=== PATIENT | female | born 1990 | race Caucasian/White ===

== ENCOUNTER 2016-08-17 08:08 | Inpatient (IN) | payer OTHER ==
[~2016-08-17] VITALS: Ht 177.8 cm; Wt 110.0 kg
[2016-08-17] VITALS (26 sets, daily range): BP systolic 113–147; BP diastolic 62–90
[2016-08-17] MEDS ORDERED: PRENTAB31 PO (08:43)
[2016-08-17] MEDS ORDERED: RANI15TA PO (08:43)
[2016-08-17] MEDS ORDERED: LACTATED RINGER'S 1000 ML IV STA (08:52)
[2016-08-17] MEDS ORDERED: LR 1,000 ML IV SCH ×2 (08:52)
[2016-08-17] MEDS ORDERED: OXYTOCIN DRIP 30 UNITS in APPROPRIATE DILUENT 1 EA IV SCH (09:00)
[2016-08-17 09:26] LABS: MEAN CORPUSCULAR HEMOGLOBIN 29.9 pg (27.0-33.0); MEAN CORPUSCULAR HGB CONC 33.4 g/dl (32.0-36.5); MEAN CORPUSCULAR VOLUME 89.4 fl (80.0-96.0); RED CELL DISTRIBUTION WIDTH 13.9 % (11.5-14.5)
[2016-08-17] MEDS ORDERED: FENTANYL 2MCG/ML ROPIVACAINE 0.2% NACL 250 ML CADD As Ordered ONE (13:20)
[2016-08-17] MEDS ORDERED: REFRIGERATOR IV KEYS XX PRN (14:45)
[2016-08-17] MEDS ORDERED: NALOXONE INJ 0.4 MG/1 ML VIAL (J2310) IV PRN (14:45)
[2016-08-17] MEDS ORDERED: ONDANSETRON 4MG/2ML VIAL (J2405) IV PRN ×2 (14:45→18:00)
[2016-08-17] MEDS ORDERED: FENTANYL/ROPIVACAINE/NACL CADD 250 ML EPIDURAL SCH (14:45)
[2016-08-17] MEDS ORDERED: EPIDURAL COMMENT XX SCH (14:45)
[2016-08-17] MEDS ORDERED: EPIDURAL/PCA KEYS XX PRN (14:45)
[2016-08-17] MEDS ORDERED: ePHEDrine SULFATE 25 MG/5 ML(5MG/ML) SYRINGE IV PRN (14:45)
[2016-08-17] MEDS ORDERED: diphenhydrAMINE INJ 50MG/ML VIAL (J1200) IV PRN (14:45)
[2016-08-17 17:41] LABS: CORD GAS ABE V -11.1; CORD GAS HCO3 V 18.2 MEQ/L; CORD GAS O2 SAT V 38.6 %; CORD GAS PCO2 V 54.1 mmHg; CORD GAS PH V 7.145 UNITS; CORD GAS PO2 V 21.8 mmHg; CORD GAS SBC V 14.7 MEQ/L; CORD GAS TCO2 V 19.9 MEQ/L
[2016-08-17 17:43] LABS: CORD GAS ABE A -12.4; CORD GAS HCO3 A 16.5 MEQ/L; CORD GAS PCO2 A 49.2 mmHg; CORD GAS PH A 7.144 UNITS; CORD GAS PO2 A 34.1 mmHg; CORD GAS SBC A 14.3 MEQ/L
[2016-08-17] MEDS ORDERED: MEASLES,MUMPS,RUBELLA VACCINE INJ (MMR-II) (90707) SC SCH (18:00)
[2016-08-17] MEDS ORDERED: PROMETHAZINE 25 MG TAB PO PRN (18:00)
[2016-08-17] MEDS ORDERED: RHOGAM 300 MCG (1500 IU) INJ (J2790) IM SCH (18:00)
[2016-08-17] MEDS ORDERED: DIBUCAINE 1% OINTMENT 30GM TOP PRN (18:00)
[2016-08-17] MEDS ORDERED: DOCUSATE SODIUM 100 MG CAP PO PRN (18:00)
[2016-08-17] MEDS ORDERED: ANUSOL HC CREAM 30GM TOP PRN (18:00)
[2016-08-17] MEDS ORDERED: ACETAMINOPHEN 500 MG TAB PO PRN (18:00)
[2016-08-17] MEDS ORDERED: METHYLERGONOVINE MALEATE 0.2 MG TAB PO PRN (18:00)
[2016-08-17] MEDS: IBUPROFEN 800 MG TAB PO PRN (19:03)
[2016-08-18] MEDS: IBUPROFEN 800 MG TAB PO PRN ×2 (02:05→12:53)
[2016-08-18 06:00] VITALS: BP 142/68
[2016-08-18] MEDS ORDERED: ACETAMINOPHEN 500 MG TAB PO PRN (07:45)
[2016-08-18] MEDS: PRENATAL VITAMIN TAB PO SCH (08:27)
[2016-08-18] MEDS: ACETAMINOPH W/CODEINE #3 TAB UD PO PRN ×3 (08:28→22:03)
[2016-08-18 18:22] VITALS: BP 129/66
[2016-08-19] MEDS: ACETAMINOPH W/CODEINE #3 TAB UD PO PRN ×2 (04:58→11:11)
[2016-08-19 05:35] VITALS: BP 135/70
[2016-08-19] MEDS: PRENATAL VITAMIN TAB PO SCH (08:37)
[2016-08-19] MEDS ORDERED: COLA100C PO (09:33)
[2016-08-19] MEDS ORDERED: IBUP-1114 PO (09:33)
[2016-08-19] MEDS ORDERED: PRENTAB16 PO (09:33)
[2016-08-19] MEDS ORDERED: TYLE325T5 PO (09:33)
== END 2016-08-19 11:15 | disposition home or self-care (01) | DRG 775 ==
LOC: M LDO 08:08 → M LDI 08:44 → M OBS 19:36
PROVIDERS: ADMIT Student in an Organized Health Care Education/Training Program; ATTEND Student in an Organized Health Care Education/Training Program
PROC: 10E0XZZ Delivery of Products of Conception, External Approach (ICD-10-PCS; principal; 2016-08-17)
PROC: 0W8NXZZ Division of Female Perineum, External Approach (ICD-10-PCS; 2016-08-17)
DX: O42.02 Full-term premature rupture of membranes, onset of labor within 24 hours of rupture (principal); O24.420 Gestational diabetes mellitus in childbirth, diet controlled; Z3A.38 38 weeks gestation of pregnancy; O76 Abnormality in fetal heart rate and rhythm complicating labor and delivery; Z37.0 Single live birth